=== PATIENT | male | born 1995 | race Caucasian/White ===

== ENCOUNTER 2017-07-30 19:46 | Emergency (ER) | payer OTHER ==
[2017-07-30] MEDS ORDERED: IBUPROFEN 600 MG TABLET (FP) PO ONE ×2 (20:13→20:56)
[2017-07-30 20:14] VITALS: BP 125/55; PULSE 88; TEMP 101.4; BMI 25.4
--- NOTE | 2017-07-30 20:17 | PDOC ---
Rapid Medical Evaluation Chief Complaint: Sore Throat Time Seen by Provider: 07/30/17 20:11 Medical Evaluation: Allergies Allergy/AdvReac Type Severity Reaction Status Date / Time No Known Allergies Allergy Verified 07/30/17 20:11 07/30/17 20:12 21 year old male with cough sorethroat and fever x 2 days. PE: patient alert ox3. pharyngeal erythema, + nasal congestion Plan; influenza, rapid strep ibuprofen.
--- NOTE | 2017-07-30 21:12 | PDOC ---
History of Present Illness - General Chief Complaint: Sore Throat Stated Complaint: COLD SYMPTOMS Time Seen by Provider: 07/30/17 20:11 History Source: Patient Exam Limitations: No Limitations - History of Present Illness Initial Comments: 07/30/17 21:48 21-year-old male with no medical history presents to the emergency department with his family complaining of fever 101.9 Tmax, nonproductive cough, chills, general malaise since yesterday. Patient denies headache, dizziness, lightheadedness, facial pains, rhinorrhea, nasal congestion, neck pain/stiffness , back pains, chest pain, shortness of breath, abdominal pains, flank pains, urinary symptoms. Patient states he took aspirin 2 hours ago without much relief./ Timing/Duration: other (x2d) Past History - Past Medical History Allergies/Adverse Reactions: Allergies Allergy/AdvReac Type Severity Reaction Status Date / Time No Known Allergies Allergy Verified 07/30/17 20:11 Home Medications: Ambulatory Orders Aspirin [ASA -] 325 mg PO DAILY 07/30/17 Oseltamivir Phosphate [Tamiflu] 75 mg PO Q12H #9 capsule 07/30/17 COPD: No - Immunization History Immunization Up to Date: Yes - Suicide/Smoking/Psychosocial Hx Smoking History: Never smoked Review of Systems - Review of Systems Able to Perform ROS?: Yes Comments:: 07/30/17 21:11 CONSTITUTIONAL: +fever/chills Absent: diaphoresis, generalized weakness, malaise, loss of appetite HEENT: +nasal congestion Absent: rhinorrhea, throat pain, throat swelling, difficulty swallowing, mouth swelling, ear pain, eye pain, visual Changes CARDIOVASCULAR: Absent: chest pain, loss of consciousness, palpitations, irregular heart rate, peripheral edema RESPIRATORY: +cough Absent: shortness of breath, dyspnea with exertion, orthopnea, wheezing, stridor, hemoptysis GASTROINTESTINAL: Absent: abdominal pain, abdominal distension, nausea, vomiting, diarrhea, constipation, melena, hematochezia GENITOURINARY: Absent: dysuria, frequency, urgency, hesitancy, hematuria, flank pain, genital pain MUSCULOSKELETAL: Absent: myalgia, arthralgia, joint swelling SKIN: Absent: rash, itching, pallor HEMATOLOGIC/IMMUNOLOGIC: Absent: easy bleeding, easy bruising, lymphadenopathy, frequent infections ENDOCRINE: Absent: unexplained weight gain, unexplained weight loss, heat intolerance, cold intolerance NEUROLOGIC: Absent: headache, focal weakness or paresthesias, dizziness, unsteady gait, seizure, mental status changes, bladder or bowel incontinence Is the patient limited German proficient: No *Physical Exam - Vital Signs Last Vital Signs Temp Pulse Resp BP Pulse Ox 101.4 F H 88 20 125/55 99 07/30/17 20:11 07/30/17 20:11 07/30/17 20:11 07/30/17 20:11 07/30/17 20:11 - Physical Exam Comments: 07/30/17 21:11 GENERAL: Well developed, well nourished. Awake and alert. No acute distress. HEENT: Normocephalic, atraumatic. PERRLA, EOMI. No conjunctival pallor. Sclera are non- icteric. Moist mucous membranes. Oropharynx is clear. NECK: Supple. Full ROM. No JVD. Carotid pulses 2+ and symmetric, without bruits. No thyromegaly. No lymphadenopathy. CARDIOVASCULAR: Regular rate and rhythm. No murmurs, rubs, or gallops. Distal pulses are 2+ and symmetric. PULMONARY: No evidence of respiratory distress. Lungs clear to auscultation bilaterally. No wheezing, rales or rhonchi. ABDOMINAL: Soft. Non-tender. Non-distended. No rebound or guarding. No organomegaly. Normoactive bowel sounds. MUSCULOSKELETAL Normal range of motion at all joints. No bony deformities or tenderness. No CVA tenderness. EXTREMITIES: No cyanosis. No clubbing. No edema. No calf tenderness. SKIN: Warm and dry. Normal capillary refill. No rashes. No jaundice. NEUROLOGICAL: Alert, awake, appropriate. Cranial nerves 2-12 intact. No deficits to light touch and temperature in face, upper extremities and lower extremities. No motor deficits in the in face, upper extremities and lower extremities. Normoreflexic in the upper and lower extremities. Normal speech. Toes are down- going bilaterally. Gait is normal without ataxia. PSYCHIATRIC: Cooperative. Good eye contact. Appropriate mood and affect. ED Treatment Course - ADDITIONAL ORDERS Additional order review: 07/30/17 20:00 Group A Strep Rapid Antigen - Preliminary Throat - Medications Given in the ED: ED Medications Discontinued Medications Generic Name Dose Route Start Last Admin Trade Name Freq PRN Reason Stop Dose Admin Ibuprofen 600 mg 07/30/17 20:13 07/30/17 20:59 Motrin - PO 07/30/17 20:14 600 mg ONCE ONE Administration *DC/Admit/Observation/Transfer Diagnosis at time of Disposition: Influenza A (H1N1) - Discharge Dispostion Disposition: HOME Condition at time of disposition: Stable Admit: No - Prescriptions Prescriptions: Oseltamivir Phosphate [Tamiflu] 75 mg PO Q12H #9 capsule - Referrals Referrals: Dina Polo [Primary Care Provider] - - Patient Instructions Printed Discharge Instructions: DI for Influenza -- Adult Additional Instructions: Rest Increase fluids Tylenol alternating with motrin every 6 hours as needed for pain or fever Follow up with your physician within 48 hours Return to the ER for severe/persistent/worsening symptoms - Post Discharge Activity Forms/Work/School Notes: Back to Work
[2017-07-30] MEDS ORDERED: SODIUM CHLORIDE 1,000 ML IV STA (21:47)
[2017-07-30] MEDS ORDERED: OSELTAMIVIR PHOSPHATE 75 MG CAPSULE PO ONE (21:47)
[2017-07-30] MEDS ORDERED: OSELTAMIVIR PHOSPHATE 75 MG CAPSULE ONE (21:56)
== END 2017-07-30 23:27 | disposition home or self-care (01) ==
LOC: JERFT 19:46
PROC: 3E0337Z Introduction of Electrolytic and Water Balance Substance into Peripheral Vein, Percutaneous Approach (ICD-10-PCS; principal; 2017-07-30)
DX: J10.1 Influenza due to other identified influenza virus with other respiratory manifestations (principal)
CPT/HCPCS: 71020-TC; 87070; 87077; 87430; 87804; 99281-25

== ENCOUNTER 2018-11-24 08:50 | Emergency (ER) | payer OTHER ==
[2018-11-24 09:36] VITALS: BP 120/64; PULSE 72; TEMP 97.8; BMI 27.4
[2018-11-24] MEDS ORDERED: IBUPROFEN 400 MG TABLET (FP) PO ONE ×2 (09:52→09:55)
--- NOTE | 2018-11-24 10:02 | PDOC ---
History of Present Illness - General Chief Complaint: Cold Symptoms Stated Complaint: FEVER Time Seen by Provider: 11/24/18 09:33 History Source: Patient Exam Limitations: No Limitations - History of Present Illness Initial Comments: 11/24/18 10:31 Patient came for evaluation of headache, earache and sore throat pain that started yesterday is progressively worsen. Took one dose of ibuprofen last night with minimal resolved. States had fevers and chills but did not take temperature. No one else at home is sick. Works construction. Timing/Duration: reports: getting worse Severity: reports: mild, moderate Associated Symptoms: reports: earache, fever/chills, nasal congestion, nasal drainage, sore throat Past History - Travel Traveled outside of the country in the last 30 days: No Close contact w/someone who was outside of country & ill: No - Past Medical History Allergies/Adverse Reactions: Allergies Allergy/AdvReac Type Severity Reaction Status Date / Time No Known Allergies Allergy Verified 11/24/18 09:48 Home Medications: Ambulatory Orders NK [No Known Home Medication] 11/24/18 COPD: No - Immunization History Immunization Up to Date: Yes - Suicide/Smoking/Psychosocial Hx Smoking History: Never smoked Hx Alcohol Use: No Drug/Substance Use Hx: No Review of Systems - Review of Systems Able to Perform ROS?: Yes Is the patient limited Swedish proficient: Yes Constitutional: Yes: Symptoms Reported, See HPI, Chills, Fever, Malaise HEENTM: Yes: Symptoms Reported, See HPI, Nose Congestion, Throat Pain, Throat Swelling, Difficulty Swallowing Respiratory: Yes: See HPI, Cough Musculoskeletal: Yes: Symptoms Reported, See HPI, Muscle Pain Integumentary: Yes: Symptoms Reported, See HPI All Other Systems: Reviewed and Negative *Physical Exam - Vital Signs Last Vital Signs Temp Pulse Resp BP Pulse Ox 97.8 F 72 17 120/64 96 11/24/18 09:32 11/24/18 09:32 11/24/18 09:32 11/24/18 09:32 11/24/18 09:32 - Physical Exam General Appearance: Yes: Nourished, Appropriately Dressed, Apparent Distress, Mild Distress HEENT: positive: NERISSA (glassy), TMs Normal, Pharynx Normal, Nasal Congestion ( congested but landmarks easily visualized), Rhinorrhea, Sinus Tenderness Neck: positive: Supple, Lymphadenopathy (R), Lymphadenopathy (L) Respiratory/Chest: positive: Lungs Clear, Normal Breath Sounds Musculoskeletal: positive: Normal Inspection Extremity: positive: Normal Capillary Refill, Normal Inspection, Normal Range of Motion. negative: Tender Integumentary: positive: Normal Color, Dry, Warm, Pale Neurologic: positive: string studies director II-XII NML intact, Fully Oriented, Alert, Normal Mood/ Affect, Normal Response, Motor Strength 5/5 Progress Note - Progress Note Progress Note: Rapid strep test negative for strep throat. Patient encouraged to continue conservative measures and if strep culture returns positive will have prescription called in. *DC/Admit/Observation/Transfer Diagnosis at time of Disposition: Upper respiratory infection, viral - Discharge Dispostion Disposition: HOME Condition at time of disposition: Stable Decision to Admit order: No - Referrals Referrals: Dina Polo [Primary Care Provider] - - Patient Instructions Printed Discharge Instructions: DI for Viral Upper Respiratory Infection -- Adult Additional Instructions: Rest, drink lots of fluids: Teas, water, soups, Pedialyte Saltwater gargles Steamy showers/seem to face break up mucus Avoid contact with others until fevers and cough resolved Lots of handwashing and good hygiene Continue [id number] medications for symptomatic relief Tylenol or Motrin for fever and pain Followup with private physician in one to 2 days as needed Return to emergency department for worsened symptoms, fevers, dehydration - Post Discharge Activity Forms/Work/School Notes: Back to Work
== END 2018-11-24 11:05 | disposition home or self-care (01) ==
LOC: JERFT 08:50
DX: J06.9 Acute upper respiratory infection, unspecified (principal); B97.89 Other viral agents as the cause of diseases classified elsewhere
CPT/HCPCS: 87070; 87880; 99281-25

== ENCOUNTER 2022-04-05 10:45 | Emergency (ER) | payer OTHER ==
[2022-04-05 10:53] VITALS: BP 132/76; PULSE 90; RESP 22; TEMP 98.5; BMI 25.8
[2022-04-05] MEDS ORDERED: DEXAMETHASONE SOD PHOSPHATE 10 MG/1 ML VIAL PO ONE (11:28)
== END 2022-04-05 11:48 | disposition home or self-care (01) ==
LOC: JER 10:45
DX: J06.9 Acute upper respiratory infection, unspecified (principal)
CPT/HCPCS: 0241U-QW; 99283-25; J1100

== ENCOUNTER 2022-07-27 23:38 | Emergency (ER) | payer OTHER ==
[2022-07-27 23:44] VITALS: BP 114/63; PULSE 99; RESP 18; TEMP 97; BMI 36.3
[2022-07-27] MEDS ORDERED: IBUPROFEN 600 MG TABLET (FP) PO ONE (23:59)
[2022-07-28] MEDS ORDERED: KETOROLAC TROMETHAMINE 30 MG/1 ML VIAL IM ONE (00:18)
== END 2022-07-28 02:36 | disposition home or self-care (01) ==
LOC: JER 23:38
PROC: 3E0233Z Introduction of Anti-inflammatory into Muscle, Percutaneous Approach (ICD-10-PCS; principal; 2022-07-27)
DX: S86.012A Strain of left Achilles tendon, initial encounter (principal); Y93.66 Activity, soccer
CPT/HCPCS: 73610-TC-LT-FY; 73630-TC-LT; 99284-25